=== PATIENT | male | born 1970 | race Caucasian/White ===

== ENCOUNTER 2018-03-18 18:26 | Emergency (ER) | payer OTHER ==
[2018-03-18 20:56] VITALS: BP 111/76
[2018-03-18] MEDS ORDERED: Lidocaine 1%* 5 ML VIAL INJ ONE (21:01)
[2018-03-18] MEDS ORDERED: Lidocaine 1%* 5 ML VIAL ONE (21:03)
--- NOTE | 2018-03-18 21:19 | ED ---
Laceration/Wound HPI - HPI Summary HPI Summary: 47 male presents with right pinky finger injury today. He states he punched some glass. He denies any glass in the injury. He states area continues to bleed. His immunizations are up-to-date. Has full range of motion. He denies any numbness or tingling. He is right-handed. The area was wrapped by the [facility]. - History of Current Complaint Stated Complaint: RT FINGER LAC Time Seen by Provider: 03/18/18 20:49 Pain Intensity: 0 - Allergy/Home Medications Allergies/Adverse Reactions: Allergies Allergy/AdvReac Type Severity Reaction Status Date / Time No Known Allergies Allergy Verified 03/18/18 18:32 PMH/Surg Hx/FS Hx/Imm Hx Endocrine/Hematology History: Denies: Hx Anticoagulant Therapy Cardiovascular History: Denies: Hx Myocardial Infarction Infectious Disease History: No Infectious Disease History: Denies: Traveled Outside the [place] in Last 30 Days - Family History Known Family History: Positive: Hypertension - Social History Alcohol Use: Occasionally Substance Use Type: Reports: None Review of Systems Negative: Fever Negative: Chest Pain Negative: Shortness Of Breath Positive: Other - left pinky laceration All Other Systems Reviewed And Are Negative: Yes Physical Exam Triage Information Reviewed: Yes Vital Signs On Initial Exam: Initial Vitals Temp Pulse Resp BP Pulse Ox 98.2 F 75 18 112/68 97 03/18/18 18:27 03/18/18 18:27 03/18/18 18:27 03/18/18 18:27 03/18/18 18:27 Vital Signs Reviewed: Yes Appearance: Positive: Well-Appearing Skin: Positive: Warm, Dry, Other - 1cm at PIP Head/Face: Positive: Normal Head/Face Inspection Eyes: Positive: Normal, Conjunctiva Clear Respiratory/Lung Sounds: Positive: Clear to Auscultation, Breath Sounds Present Cardiovascular: Positive: Normal, RRR Musculoskeletal: Positive: Strength/ROM Intact - left pinky, Other - capillary refill<2 secs, good pulses Neurological: Positive: Normal Psychiatric: Positive: Normal Procedures - Laceration/Wound Repair 1 Location: Other - right pinky finger Description: Linear Anesthesia: Digital, 1.0% Length, Depth and Shape: 1 cm by half centimeter laceration Irrigated w/ Saline (ccs): 50 Laceration/Wound Explored: no foreign body removed Suture Type: Prolene - 4-0 Number of Sutures: 1 Sterile Dressing Applied?: Yes - [facility] - Vital Signs Vital Signs Temp Pulse Resp BP Pulse Ox 03/18/18 20:25 96.8 F 56 14 111/76 99 03/18/18 18:27 98.2 F 75 18 112/68 97 - Laboratory Lab Statement: Any lab studies that have been ordered have been reviewed, and results considered in the medical decision making process. Laceration Repair Course/Dx - Course Course Of Treatment: 47 male presents with right pinky finger injury today. He states he punched some glass. He denies any glass in the injury. He states area continues to bleed. His immunizations are up-to-date. Has full range of motion. He denies any numbness or tingling. He is right-handed. The area was wrapped by the [facility]. On exam has 1 cm laceration of the PIP of right pinky finger. Cleaned and placed 1 suture. Patient understands and agrees with plan. - Differential Dx Differental Diagnoses: Abrasion, Avulsion, Laceration - Clinical Impression Provider Diagnoses: Laceration of right little finger Discharge - Sign-Out/Discharge Documenting (check all that apply): Discharge/Admit/Transfer - Discharge Plan Condition: Good Disposition: HOME Patient Education Materials: Care For Your Stitches (ED) Referrals: Walker LAWRENCE,Brenna Box [Primary Care Provider] - Additional Instructions: Take Tylenol or ibuprofen for pain every 6 hours for pain Keep area clean and dry for 24 hours sutures removal in 10-14 days to have sutures removed avoid flexing finger repetitively for next 5 days Return to ED if develop signs of infection such as fever, spreading redness, or worsening symptoms - Billing Disposition and Condition Condition: GOOD Disposition: HOME
== END 2018-03-18 21:25 | disposition home or self-care (01) ==
LOC: ED 18:26
DX: S61.216A Laceration without foreign body of right little finger without damage to nail, initial encounter (principal); W25.XXXA Contact with sharp glass, initial encounter; Y92.149 Unspecified place in prison as the place of occurrence of the external cause
CPT/HCPCS: 96372; 99282